=== PATIENT | male | born 1980 | race Caucasian/White ===

== ENCOUNTER 2024-05-30 14:27 | Emergency (ER) | payer BC, MEDICAID, SELFPAY ==
[2024-05-30] VITALS (9 sets, daily range): BP systolic 122–145; BP diastolic 58–93; PULSE 58–71; RESP 13–18; TEMP 36.7; O2SAT 75–98; BMI 27.3
--- NOTE | 2024-05-30 14:29 | ECG_ITS ---
[facility] Date: 2024-05[facility]30 Pat Name: Ridge Garcia Department: Room: Gender: Male Vp Platforms: : 1980 Requested By: Dionicio Emery Order Number: [id number] Yoel MD: Meng Floyd M.D. Measurements Intervals [place] Rate: 64 P: 64 VT: 161 QRS: 102 QRSD: 96 T: -9 QT: 372 QTc: 385 Interpretive Statements SINUS RHYTHM RIGHT AXIS DEVIATION [QRS AXIS > 100] ABNORMAL QRS-T ANGLE [QRS-T AXIS DIFFERENCE > 60] No previous ECG available for comparison Electronically Signed On 06-02-2024 00:01:59 PRESS TECHNICIAN by Meng Floyd M.D. [email or web address]
--- NOTE | 2024-05-30 14:30 | XRR_ITS ---
PROCEDURE INFORMATION: Exam: XR Chest Exam date and time: 05/30/2024 2:46 PM Age: 43 years old Clinical indication: Chest pressure; Patient HX: C/O left sided chest pain radiating into the arm pit that started about an hr ago while walking to his bedroom. Dizziness. PT states that it has resolved. PT reports that he gets chest pains frequently. PT also reports blood in his stool daily for the past 8 yrs. PT reports passing out this am post bm. Lower abd pain with hernia. PT is pending a gi consult. ; Additional info: Cp TECHNIQUE: Imaging protocol: Radiologic exam of the chest. Views: 1 view. COMPARISON: No relevant prior studies available. FINDINGS: Tubes, catheters and devices: None. Lungs: The lungs appear clear. Pleural spaces: No pleural effusion. No pneumothorax. Heart/Mediastinum: Mediastinum and matthew appear unremarkable. Bones/joints: No acute bony abnormality identified. XR/XR chest 1V portable [id number] IMPRESSION: No evidence for an acute cardiopulmonary process.
--- NOTE | 2024-05-30 14:49 | W.ED.CHESTPA ---
HPI - Chest Pain General: Chief Complaint: Chest Pain Stated Complaint: chest pain Time Seen by Provider: 05/30/24 14:40 Source: patient Mode of arrival: ambulatory Limitations: no limitations History of Present Illness: 43-year-old male states that he has been having chest pain he states has been going on for months. He states that he had a sharp pain in the center of his chest that is now resolved. He states that he had had a near syncopal event with the chest pain he states he also has had blood in his stool he states it has been going on for 8 years he has referral to GI [facility]. Denies any shortness of breath. Associated symptoms: Deny abdominal pain, dyspnea, fever(s), nausea or vomiting Related Data Home Medications Medication Instructions Recorded Confirmed albuterol sulfate 90 mcg/actuation 2 puff inhalation Q6H PRN 10/02/21 10/02/21 aerosol inhaler lithium carbonate 600 mg capsule 600 mg PO BID 10/02/21 10/02/21 risperidone 0.25 mg tablet 0.25 mg PO DAILY 10/02/21 10/02/21 trazodone 100 mg tablet 100 mg PO .3 at Bedtime 10/02/21 10/02/21 Allergies Allergy/AdvReac Type Severity Reaction Status Date / Time duloxetine Allergy Severe ADR-Agitate Verified 10/02/21 10:23 d NSAIDS (Non-Steroidal Allergy Unknown Verified 05/30/24 14:38 Anti-Inflamma Review of Systems Const: Denies: fever(s), chills, body aches or change in appetite ENMT: Denies: throat pain or dental pain Card: Reports: chest pain Resp: Denies: dyspnea GI: Denies: abdominal pain, nausea, vomiting or diarrhea Musc: Denies: neck pain or back pain Skin/Breast: Denies: rash Neuro: Denies: headache(s) PFSH ED PFSH: Social History Smoking and tobacco/nicotine status: current every day tobacco/nicotine user Physical Exam Const: COMMON NORMALS: no acute distress, patient oriented x3 and healthy appearing HENMT: COMMON NORMALS: normocephalic and atraumatic HEAD & SCALP: normocephalic and atraumatic Eye: COMMON NORMALS: conjunctivae normal CONJUNCTIVA: Yes conjunctivae normal Neck/C-Spine: COMMON NORMALS: full ROM and supple Chest: COMMONS NORMALS: normal inspection of the chest Resp: COMMON NORMALS: normal respiratory effort, No retractions, No use of accessory muscles and clear to auscultation bilaterally AUSCULTATION: clear to auscultation bilaterally Cardio: COMMON NORMALS: regular rate, regular rhythm and No murmurs present (Cardio) RATE: regular rate RHYTHM: regular rhythm GI: COMMON NORMALS: Normal to inspection, nondistended, normoactive bowel sounds present, Soft to palpation and non-tender PALPATION: Yes Soft to palpation Extremity: COMMON NORMALS: normal to inspection and full ROM Neuro: COMMON NORMALS: patient oriented x3, moves all extremities and no focal motor deficits Psych: COMMON NORMALS: mental status grossly normal, Normal thought process present and cooperative THOUGHT PROCESS: Normal thought process present Skin: COMMON NORMALS: no rashes or lesions noted and no wounds GENERAL SKIN EXAM: no rashes or lesions noted Course Vital Signs: Vital signs: Vital Signs Temperature 98.0 F 05/30/24 14:32 Pulse Rate 69 05/30/24 14:32 Respiratory Rate 18 05/30/24 14:32 Blood Pressure 132/78 05/30/24 14:32 Pulse Oximetry 98 05/30/24 14:32 Oxygen Delivery Me thod Room Air 05/30/24 14:32 MDM - Chest Pain Medical Decision Making Patient presents for chest pain has been going on for quite some time initial repeat troponin here normal he has no signs of ACS no signs of PE he is stable for discharge she is follow-up with PCP return if worsening. Medical Records I reviewed the patient's medical records. Lab Data I reviewed the patient's lab results. 05/30/24 14:44 05/30/24 14:44 Radiology Impressions Chest X-Ray 05/30/24 14:30 IMPRESSION: No evidence for an acute cardiopulmonary process. Laboratory Results WBC 12.61 10^3/uL (3.29-11.43) H 05/30/24 14:44 RBC 4.80 10^6/uL (3.85-5.65) 05/30/24 14:44 Hgb 15.90 g/dL (11.27-16.99) 05/30/24 14:44 Hct 46.7 % (37-53) 05/30/24 14:44 MCV 97.3 fl (82-101) 05/30/24 14:44 MCH 33.1 pg (27-33) H 05/30/24 14:44 MCHC 34.0 g/dL (30-55) 05/30/24 14:44 RDW 12.7 % (12.1-15.1) 05/30/24 14:44 Plt Count 277 10^3/cmm (157-399) 05/30/24 14:44 MPV 8.6 fL (7.4-10.4) 05/30/24 14:44 Neut % (Auto) 67.6 % 05/30/24 14:44 Lymph % (Auto) 23.3 % 05/30/24 14:44 Bell % (Auto) 7.1 % 05/30/24 14:44 Eos % (Auto) 1.0 % 05/30/24 14:44 Baso % (Auto) 0.6 % 05/30/24 14:44 Neut # (Auto) 8.51 10^3/uL (1.8-7.7) H 05/30/24 14:44 Lymph # (Auto) 2.9 10^3/uL (0.8-4.8) 05/30/24 14:44 Bell # (Auto) 0.9 10^3/uL (0.2-0.9) 05/30/24 14:44 Eos # (Auto) 0.1 10^3/uL (0.0-0.8) 05/30/24 14:44 Baso # (Auto) 0.1 10^3/uL (0.0-0.1) 05/30/24 14:44 Nucleated RBC % (auto) 0 % 05/30/24 14:44 Nucleated RBCs # 0.0 /100WBC 05/30/24 14:44 PT 12.50 SECONDS (12.1-14.9) 05/30/24 14:44 INR 0.87 (0.8-1.2) 05/30/24 14:44 Sodium 137 mmol/L (136-145) 05/30/24 14:44 Potassium 4.0 mmol/L (3.5-5.1) 05/30/24 14:44 Chloride 102 mmol/L (98-107) 05/30/24 14:44 Carbon Dioxide 24 mmol/L (22-29) 05/30/24 14:44 Anion Gap 15.0 (5-19) 05/30/24 14:44 BUN 9 mg/dL (6-20) 05/30/24 14:44 Creatinine 0.9 mg/dL (0.7-1.2) 05/30/24 14:44 GFR Calculation 93.0 mL/min (90-130) 05/30/24 14:44 Glucose 101 mg/dL (65-115) 05/30/24 14:44 Calculated Osmolality 283 mOsm/kg (285-295) L 05/30/24 14:44 Calcium 9.8 mg/dL (8.5-10.5) 05/30/24 14:44 Total Bilirubin 0.3 mg/dL (0.15-1.2) 05/30/24 14:44 AST 19 U/L (0-40) 05/30/24 14:44 ALT 16 U/L (0-41) 05/30/24 14:44 Alkaline Phosphatase 77 U/L (40-130) 05/30/24 14:44 Troponin T Baseline < 6 ng/L (0-15) 05/30/24 14:44 Troponin T 120 Minute 6.00 ng/L (0-15) 05/30/24 16:48 Delta Troponin T 0.87560 ABS# (0-10) 05/30/24 16:48 Total Protein 6.9 g/dL (6.6-8.7) 05/30/24 14:44 Albumin 4.8 g/dL (3.5-5.2) 05/30/24 14:44 Globulin 2.1 g/dL (1.3-4.6) 05/30/24 14:44 Lipase 24 U/L (13-60) 05/30/24 14:44 All radiology interpretation(s) finalized by discharge EKG Data EKG 1: I personally reviewed and interpreted this EKG as follows: EKG interpretation date: 05/30/24 EKG interpretation time: 14:29 Interpretation: nsr hr [address] elevation qrs 96 qtc 381 EKG 2: I personally reviewed and interpreted this EKG as follows: EKG interpretation date: 05/30/24 EKG interpretation time: 16:33 Interpretation: sinus brit hr [address] elevation qrs 96 qtc 404 Clincial Decision Support The following clinical decision support tools were used to aid in care of the patient HEART Score -> History: Slightly Suspicous, EKG: Normal, Age: Less than 45 yrs, Risk Factors: No Risk Factors Known, Troponin: Baseline Trop <16 ng/L. Resulting HEART Score: 0. Discharge Plan Discharge Patient Disposition: Home Clinical Impression: Chest pain Condition: Stable Prescriptions: No Action trazodone 100 mg tablet 100 mg PO .3 at Bedtime lithium carbonate 600 mg capsule 600 mg PO BID risperidone 0.25 mg tablet 0.25 mg PO DAILY albuterol sulfate 90 mcg/actuation HFA aerosol inhaler 2 puff inhalation Q6H PRN Discharge Orders: Discharge ED (Routine); Ordered 05/30/24 Ordered By: Dionicio Emery Discharge Diet: Advance as tolerated Discharge Activity: Resume usual activity Patient Instructions: Chest Pain (ED) Coding Level of Care Code ED Truck And Transport Mechanic for Gerald Layne
[2024-05-30 14:52] LABS: Basophils # 0.1 10^3/uL (0.0-0.1); Basophils % 0.6 %; Eosinophils # 0.1 10^3/uL (0.0-0.8); Hematocrit 46.7 % (37-53); Lymphocytes # 2.9 10^3/uL (0.8-4.8); Lymphocytes % 23.3 %; Mean Corpuscular Hemoglobin 33.1 pg (27-33); Mean Corpuscular Volume 97.3 fl (82-101); Mean Platelet Volume 8.6 fL (7.4-10.4); Monocytes # 0.9 10^3/uL (0.2-0.9); Monocytes % 7.1 %; Neutrophils # 8.51 10^3/uL (1.8-7.7); Neutrophils % 67.6 %; Nucleated Red Blood Cells % 0 %; Platelet Count 277 10^3/cmm (157-399); Red Cell Distribution Width 12.7 % (12.1-15.1); White Blood Count 12.61 10^3/uL (3.29-11.43)
[2024-05-30 15:04] LABS: INR 0.87 (0.8-1.2)
[2024-05-30 15:13] LABS: Alanine Aminotransferase 16 U/L (0-41); Albumin Level 4.8 g/dL (3.5-5.2); Alkaline Phosphatase 77 U/L (40-130); Aspartate Amino Transferase 19 U/L (0-40); Blood Urea Nitrogen 9 mg/dL (6-20); Calcium 9.8 mg/dL (8.5-10.5); Carbon Dioxide 24 mmol/L (22-29); Chloride 102 mmol/L (98-107); Creatinine Clr Calc Pharmacy 112.5954; Globulin 2.1 g/dL (1.3-4.6); Glucose 101 mg/dL (65-115); Lipase 24 U/L (13-60); Osmolality Calculated 283 mOsm/kg (285-295); Sodium 137 mmol/L (136-145); Total Bilirubin 0.3 mg/dL (0.15-1.2); Total Protein 6.9 g/dL (6.6-8.7)
[2024-05-30 15:14] LABS: Troponin(5th) Baseline < 6 ng/L (0-15)
--- NOTE | 2024-05-30 16:33 | ECG_ITS ---
[facility] Test Date: 2024-05-30 Pat Name: Ridge elias Department: Room: Gender: Male Story Reader: : 1980 Requested By: Dionicio Emery Order Number: [id number] Reading MD: Measurements Intervals [place] Rate: 56 P: 50 AK: 171 QRS: 102 QRSD: 96 T: -19 QT: 412 QTc: 399 Interpretive Statements SINUS BRADYCARDIA RIGHT AXIS DEVIATION [QRS AXIS > 100] MODERATE T-WAVE ABNORMALITY, CONSIDER INFERIOR ISCHEMIA [-0.1+ mV T-WAVE IN II/aVF] [id number]
[2024-05-30 17:23] LABS: Troponin 5 2HR Delta 0.00001 ABS# (0-10)
== END 2024-05-30 18:44 | disposition home or self-care (01) ==
PROVIDERS: Emergency Provider Emergency Medicine
DX: R07.9 Chest pain, unspecified (principal); Z72.0 Tobacco use
CPT/HCPCS: 36415; 71045; 80053; 83690; 84484; 85025; 85610; 93005; 99285

== ENCOUNTER 2024-06-08 15:47 | Outpatient (CLI) | payer OTHER, SELFPAY ==
--- NOTE | 2024-06-08 15:53 | US_ITS ---
WS: [id number] RENAL ULTRASOUND HISTORY: ABNORMAL CT- POSSIBLE CYST TO RIGHT KIDNEY COMPARISON: None available. TECHNIQUE: 2-D and color Doppler imaging of the kidney submitted. Right kidney: 12.4 cm x 4.8 cm x 4.2 cm. Cortex: 1.1 cm Normal echogenicity with no hydronephrosis or mass. Left kidney: 11.4 cm x 4.9 cm x 5.2 cm. Cortex: 1.1 cm Normal echogenicity with no hydronephrosis or mass. Aorta: Normal. Urinary Bladder: Normal distention. US/US renal BI* [id number] IMPRESSION: No renal cyst or solid mass identified. No prior studies for comparison which i dentified a cyst or mass. If there is possibility of a solid renal mass renal m ass CT protocol should be obtained. This would include imaging with and without IV contrast.
== END 2024-06-08 15:48 | disposition home or self-care (01) ==
LOC: RAD 15:48
PROVIDERS: Visit Provider Nurse Practitioner Family
DX: Z01.89 Encounter for other specified special examinations (principal)
CPT/HCPCS: 76770

== ENCOUNTER → 2024-06-16 09:00 | Outpatient (BNVA) | payer OTHER, SELFPAY | PROVIDERS: Visit Provider Surgery | DX: K21.9 Gastro-esophageal reflux disease without esophagitis (principal); K92.1 Melena | CPT/HCPCS: 99204 ==

== ENCOUNTER 2024-07-01 05:30 | Day surgery (SDC) | payer OTHER, SELFPAY ==
--- NOTE | 2024-07-01 05:57 | W.PM.OPSUD ---
Surgery/Procedure H&P Update DATE OF PROCEDURE: July 01, 2024 DATE H&P PERFORMED: 06/16/24 H&P UPDATE INFORMATION: I have reviewed H&P completed within last 30 days, I have examined patient prior to procedure, No changes to prior documentation and H&P is in [facility] EMR on date indicated PLANNED PROCEDURE: Operation Date: 07/01/24 07:00 Proposed Procedures p EGD 73335, 25034, G0105, K92.1, K21.9(Not Applicable) - Aubrey Son MD s Colonoscopy(Not Applicable) - Aubrey Son MD
[2024-07-01 06:00] VITALS: BP 122/79; PULSE 63; RESP 18; TEMP 36.4; O2SAT 98; BMI 27.3
[2024-07-01] MEDS: sodium chloride 0.9% 500 ML 15 ML IV (06:19)
--- NOTE | 2024-07-01 06:51 | ANES.PREANE2 ---
Pre-Anesthetic Assessment Height/Weight: Height 1.73 m Weight 81.647 kg Temp Pulse Resp BP Pulse Ox O2 Del Method 97.6 F 63 18 122/79 98 Room Air 07/01/24 06:00 07/01/24 06:00 07/01/24 06:00 07/01/24 06:00 07/01/24 06:00 07/01/24 06:00 Preop Diagnosis: Hematachezia, GERD Operation Date: 07/01/24 07:00 Proposed Procedures p EGD 54093, 23371, G0105, K92.1, K21.9(Not Applicable) - Aubrey Son MD s Colonoscopy(Not Applicable) - Aubrey Son MD Was Beta Collin taken within 24 hours: N/A Was Clonidine taken within 24 hours: N/A Last intake: Intake Last Liquid Date 06/30/24 Last Liquid Time 21:00 Last Solid Date 06/28/24 Social No alcohol and No tobacco + weed Exam alert, oriented x 3, clear to auscultation bilaterally and regular rate & rhythm Airway Submandibular: within normal limits Cervical ROM: within normal limits Mallampati: Class II Dentition: full History/ROS No significant history except as noted and No significant complaints Pulmonary None reported CV/HEM None reported None reported Hepatic None reported GI Gastroesophageal Reflux Disease Metabolic None reported Musc/skel None reported Neuropsych None reported Anesthetic Plan ASA status: 2 Anesthesia: Anesthesia Evaluation and MAC Risk of > 500 ml blood loss (7ml/kg in children): No Medications/Allergies Home Medications ?Medication ?Instructions ?Recorded ?Confirmed ?Last Taken ?Type trazodone 100 mg tablet 200 mg PO BEDTIME 10/02/21 07/01/24 06/30/24 History acetaminophen 325 mg tablet 1,300 mg PO QID PRN Pain 05/30/24 07/01/24 06/30/24 History (Tylenol) bupropion HCl 300 mg 24 hr tablet, 300 mg PO QAM 05/30/24 07/01/24 07/01/24 History extended release (Wellbutrin XL) calcium polycarbophil 625 mg tablet 1,250 mg PO DAILY 05/30/24 06/29/24 Unknown History famotidine 40 mg tablet 40 mg PO DAILY 05/30/24 07/01/24 06/30/24 History ondansetron HCl 4 mg tablet 4 mg PO Q8H PRN nausea and 06/16/24 07/01/24 06/30/24 Rx vomiting #3 tabs Allergies Allergy/AdvReac Type Severity Reaction Status Date / Time duloxetine Allergy Severe ADR-Agitate Verified 10/02/21 10:23 d NSAIDS (Non-Steroidal Allergy Unknown Verified 05/30/24 14:38 Anti-Inflamma Current Medications Generic Name Dose Route Start Last Admin Trade Name Freq PRN Reason Stop Dose Admin Sodium Chloride 500 mls @ 15 mls/hr 07/01/24 05:39 07/01/24 06:19 Sodium Chloride 0.9% IV 07/02/24 05:38 15 mls/hr .Q24H PRN Administration COLONOSCOPY FLUIDS PFSH Anesthesia Social History Smoking and tobacco/nicotine status: current every day tobacco/nicotine user Alcohol intake: never Substance/Drug Use: current Substance/Drug use frequency: daily Data Anesthesia Cardiac Studies: No Data to Display
[2024-07-01 07:38] VITALS: BP 105/72; PULSE 54; RESP 18; TEMP 36.2; O2SAT 99
[2024-07-01 07:54] VITALS: BP 129/87; PULSE 57; RESP 18; TEMP 36.2; O2SAT 99
--- NOTE | 2024-07-01 08:10 | ANE.PACU2 ---
Inpatient post-anesthesia follow up: Airway intact: Yes Vital signs: Temperature 97.1 F Pulse Rate 57 Respiratory Rate 18 Blood Pressure 129/87 Pulse Oximetry 99 Oxygen Delivery Me thod Room Air Oxygen Flow Rate Fraction of Inspir ed Oxygen Hydration adequate: Yes Nausea and vomiting: No Pain level: 1 Mental status: Baseline
== END 2024-07-01 08:10 | disposition home or self-care (01) ==
PROVIDERS: Visit Provider Surgery
PROC: 0DJ08ZZ Inspection of Upper Intestinal Tract, Via Natural or Artificial Opening Endoscopic (ICD-10-PCS; principal; 2024-07-01 07:00)
PROC: 0DJD8ZZ Inspection of Lower Intestinal Tract, Via Natural or Artificial Opening Endoscopic (ICD-10-PCS; CPT 45378; 2024-07-01 07:00)
DX: K29.50 Unspecified chronic gastritis without bleeding (principal); K22.70 Barrett's esophagus without dysplasia; R19.7 Diarrhea, unspecified; K59.00 Constipation, unspecified; K64.8 Other hemorrhoids; K21.9 Gastro-esophageal reflux disease without esophagitis; K92.1 Melena; F17.200 Nicotine dependence, unspecified, uncomplicated; Z79.899 Other long term (current) drug therapy
CPT/HCPCS: 43239; 45380; 88305; J2704; J7040

== ENCOUNTER → 2024-07-21 09:03 | Outpatient (BNVA) | payer OTHER, SELFPAY | PROVIDERS: Visit Provider Surgery | DX: K92.1 Melena (principal) | CPT/HCPCS: 99024; 99213 ==

== ENCOUNTER 2024-08-11 17:00 | Emergency (ER) | payer OTHER, BC, MEDICAID, SELFPAY ==
[2024-08-11 17:01] VITALS: BP 138/77; PULSE 64; RESP 15; TEMP 36.6; O2SAT 98; BMI 26.6
--- NOTE | 2024-08-11 17:35 | W.ED.MALEGU ---
HPI - Male Genitourinary General: Chief complaint: Urogenital-Male Stated complaint: [facility] Time Seen by Provider: 08/11/24 17:35 History of Present Illness: Associated symptoms: Deny dysuria Related Data Home Medications ?Medication ?Instructions ?Recorded ?Confirmed trazodone 100 mg tablet 200 mg PO BEDTIME 10/02/21 07/21/24 acetaminophen 325 mg tablet 1,300 mg PO QID PRN Pain 05/30/24 07/21/24 (Tylenol) bupropion HCl 300 mg 24 hr tablet, 300 mg PO QAM 05/30/24 07/21/24 extended release (Wellbutrin XL) calcium polycarbophil 625 mg tablet 1,250 mg PO DAILY 05/30/24 07/21/24 Previous Rx's ?Medication ?Instructions ?Recorded ondansetron HCl 4 mg tablet 4 mg PO Q8H PRN nausea and 06/16/24 vomiting #3 tabs sucralfate 1 gram tablet 1 g PO BID 8 weeks #112 tabs 07/01/24 pantoprazole 40 mg tablet,delayed 40 mg PO QDAY 30 days #30 tabs 07/21/24 release (Protonix) Allergies Allergy/AdvReac Type Severity Reaction Status Date / Time duloxetine Allergy Severe ADR-Agitate Verified 07/21/24 09:02 d NSAIDS (Non-Steroidal Allergy Unknown Verified 07/21/24 09:02 Anti-Inflamma Review of Systems Const: Denies: fever(s) or chills Card: Denies: chest pain Resp: Denies: dyspnea GI: Denies: abdominal pain : Denies: dysuria, urinary frequency or urinary urgency Musc: Denies: neck pain or back pain Skin/Breast: Denies: rash PFSH ED PFSH: Social History Smoking and tobacco/nicotine status: current every day tobacco/nicotine user Alcohol intake: never Substance/Drug Use: current Substance/Drug use frequency: daily Physical Exam Const: COMMON NORMALS: no acute distress GENERAL APPEARANCE: cooperative and comfortable ORIENTATION/CONSCIOUSNESS: Yes awake, Yes oriented to person, Yes oriented to place and Yes oriented to time HENMT: COMMON NORMALS: normocephalic, atraumatic and hearing grossly normal bilaterally HEAD & SCALP: normocephalic and atraumatic Resp: COMMON NORMALS: normal respiratory effort, No retractions, No use of accessory muscles and clear to auscultation bilaterally AUSCULTATION: clear to auscultation bilaterally Cardio: COMMON NORMALS: regular rate, regular rhythm and No murmurs present (Cardio) RATE: regular rate RHYTHM: regular rhythm GI: COMMON NORMALS: Soft to palpation and No hepatosplenomegaly present AUSCULTATION: Yes normoactive bowel sounds PALPATION: Yes Soft to palpation, No Tenderness to palpation present (GI), No Guarding due to palpation present (GI) and Yes No hepatosplenomegaly present Extremity: COMMON NORMALS: normal to inspection, capillary refill normal, no clubbing, cyanosis or edema, no calf tenderness and no pedal edema Neuro: SENSORIUM/ORIENTATION: Yes oriented to person, Yes oriented to place and Yes oriented to time Skin: COMMON NORMALS: no rashes or lesions noted GENERAL SKIN EXAM: no rashes or lesions noted Course Vital Signs: Vital signs: Vital Signs Temperature 97.9 F 08/11/24 17:01 Pulse Rate 64 08/11/24 17:01 Respiratory Rate 15 08/11/24 17:01 Blood Pressure 138/77 08/11/24 17:01 Pulse Oximetry 98 08/11/24 17:01 Oxygen Delivery Me thod Room Air 08/11/24 17:01 Discharge Plan Discharge Condition: Stable Prescriptions: No Action ondansetron HCl 4 mg tablet 4 mg PO Q8H PRN (Reason: nausea and vomiting) Qty: 3 0RF pantoprazole [Protonix] 40 mg tablet,delayed release (DR/EC) 40 mg PO QDAY 30 Days Qty: 30 5RF trazodone 100 mg tablet 200 mg PO BEDTIME acetaminophen [Tylenol] 325 mg Tablet 1,300 mg PO QID PRN (Reason: Pain) bupropion HCl [Wellbutrin XL] 300 mg Tablet Extended Release 24 Hr 300 mg PO QAM calcium polycarbophil 625 mg Tablet 1,250 mg PO DAILY sucralfate 1 gram tablet 1 g PO BID 56 Days Qty: 112 0RF Print Language: Barbadian Coding Level of Care Code ED Hydraulic Punch Press Operator for Gerald Layne
--- NOTE | 2024-08-11 18:06 | W.ED.MALEGU ---
HPI - Male Genitourinary General: Chief complaint: Urogenital-Male Stated complaint: [facility] Time Seen by Provider: 08/11/24 17:35 History of Present Illness: Patient presents to the ER with complaints of cramping in his testicles bilaterally. He said it was worse today. Rated 8 out of 10 with today currently denies any pain at all he did go home and take some ibuprofen and Tylenol. [facility] with this pain is worried about testicular torsion/hernia and they sent him appear to be evaluated. Patient is totally pain-free when he gets here. Patient does have a known ventral hernia and hiatal hernia. But he says these pain is totally different than that. 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 Related Data Home Medications ?Medication ?Instructions ?Recorded ?Confirmed trazodone 100 mg tablet 200 mg PO BEDTIME 10/02/21 07/21/24 acetaminophen 325 mg tablet 1,300 mg PO QID PRN Pain 05/30/24 07/21/24 (Tylenol) bupropion HCl 300 mg 24 hr tablet, 300 mg PO QAM 05/30/24 07/21/24 extended release (Wellbutrin XL) calcium polycarbophil 625 mg tablet 1,250 mg PO DAILY 05/30/24 07/21/24 Previous Rx's ?Medication ?Instructions ?Recorded ondansetron HCl 4 mg tablet 4 mg PO Q8H PRN nausea and 06/16/24 vomiting #3 tabs sucralfate 1 gram tablet 1 g PO BID 8 weeks #112 tabs 07/01/24 pantoprazole 40 mg tablet,delayed 40 mg PO QDAY 30 days #30 tabs 07/21/24 release (Protonix) Allergies Allergy/AdvReac Type Severity Reaction Status Date / Time duloxetine Allergy Severe ADR-Agitate Verified 07/21/24 09:02 d NSAIDS (Non-Steroidal Allergy Unknown Verified 07/21/24 09:02 Anti-Inflamma Review of Systems General: Reports: 10 or more systems reviewed and unremarkable except in HPI and below PFSH ED PFSH: Social History Smoking and tobacco/nicotine status: current every day tobacco/nicotine user Alcohol intake: never Substance/Drug Use: current Substance/Drug use frequency: daily Physical Exam Const: COMMON NORMALS: no acute distress, average body habitus, patient oriented x3, no limitations, healthy appearing, alert and well nourished HENMT: COMMON NORMALS: normocephalic, atraumatic, hearing grossly normal bilaterally, external ears normal, Normal external nose present, moist oral mucous membranes and oropharynx normal HEAD & SCALP: normocephalic and atraumatic NOSE: Normal external nose present EXTERNAL EAR: Yes external ears normal Neck/C-Spine: COMMON NORMALS: no JVD Chest: COMMONS NORMALS: normal inspection of the chest and normal palpation of entire chest wall Resp: COMMON NORMALS: normal respiratory effort, No retractions, No use of accessory muscles and clear to auscultation bilaterally AUSCULTATION: clear to auscultation bilaterally Cardio: COMMON NORMALS: no JVD, regular rate, regular rhythm, S1 normal heart sound present, S2 normal heart sound present, No gallops present (Cardio), No clicks present (Cardio), No murmurs present (Cardio) and No rub (Cardio) RATE: regular rate RHYTHM: regular rhythm HEART SOUNDS: S1 normal heart sound present and S2 normal heart sound present GI: COMMON NORMALS: Normal to inspection, nondistended, normoactive bowel sounds present, Soft to palpation, non-tender, No hepatosplenomegaly present and no masses PALPATION: Yes Soft to palpation and Yes No hepatosplenomegaly present Neuro: COMMON NORMALS: patient oriented x3 SENSORIUM/ORIENTATION: Yes alert Course Vital Signs: Vital signs: Vital Signs Temperature 97.9 F 08/11/24 17:01 Pulse Rate 64 08/11/24 17:01 Respiratory Rate 15 08/11/24 17:01 Blood Pressure 138/77 08/11/24 17:01 Pulse Oximetry 98 08/11/24 17:01 Oxygen Delivery Me thod Room Air 08/11/24 17:01 MDM - Male Medical Decision Making Patient presents to the ER with no testicular pain swelling noted. Patient declined having any lab work or ultrasound done. He said he if this happens again he will come back otherwise he will just follow-up with his [facility]. Will be discharged. Medical Records I reviewed the patient's medical records. Lab Data I reviewed the patient's lab results. No radiology studies performed this visit Discharge Plan Discharge Patient Disposition: Home Clinical Impression: Pain in both testicles Condition: Stable Prescriptions: No Action ondansetron HCl 4 mg tablet 4 mg PO Q8H PRN (Reason: nausea and vomiting) Qty: 3 0RF pantoprazole [Protonix] 40 mg tablet,delayed release (DR/EC) 40 mg PO QDAY 30 Days Qty: 30 5RF trazodone 100 mg tablet 200 mg PO BEDTIME acetaminophen [Tylenol] 325 mg Tablet 1,300 mg PO QID PRN (Reason: Pain) bupropion HCl [Wellbutrin XL] 300 mg Tablet Extended Release 24 Hr 300 mg PO QAM calcium polycarbophil 625 mg Tablet 1,250 mg PO DAILY sucralfate 1 gram tablet 1 g PO BID 56 Days Qty: 112 0RF Discharge Orders: Discharge ED (Routine); Ordered 08/11/24 Ordered By: Ridge Gunderson Patient Instructions: Testicle Pain (ED) Activity Restrictions/Additional Instructions: If your pain returns or continues please return to the ER. Otherwise follow-up with your [facility] within next 7 to 10 days for further evaluation treatment as needed. Print Language: Belgian Coding Level of Care Code ED Foreign Service Teacher for Gerald Layne
[2024-08-11 18:21] VITALS: BP 137/68; PULSE 62; PULSE 68; O2SAT 99
== END 2024-08-11 18:22 | disposition home or self-care (01) ==
PROVIDERS: Emergency Provider Emergency Medicine
DX: N50.812 Left testicular pain (principal); N50.811 Right testicular pain; Z72.0 Tobacco use
CPT/HCPCS: 99281

== ENCOUNTER → 2024-09-30 11:22 | Outpatient (BNVA) | payer OTHER, SELFPAY | PROVIDERS: Visit Provider Surgery | DX: K92.0 Hematemesis (principal) | CPT/HCPCS: 99214 ==

== ENCOUNTER 2024-11-04 08:32 | Day surgery (SDC) | payer OTHER, SELFPAY ==
--- NOTE | 2024-11-04 08:42 | W.PM.OPSFHP ---
Same Day Surgery H&P Indication for Procedure/HPI DATE OF PROCEDURE: November 04, 2024 CHIEF COMPLAINT/INDICATIONFOR SURGICAL PROCEDURE: hematemesis PREOP DIAGNOSIS: hematemesis PLANNED PROCEDURE: Operation Date: 11/04/24 10:10 Proposed Procedures p EGD 88069 K92.0(Not Applicable) - Aubrey Son MD Medications/Allergies* Home Medications ?Medication ?Instructions ?Recorded ?Confirmed ?Type trazodone 100 mg tablet 200 mg PO BEDTIME 10/02/21 11/02/24 History acetaminophen 325 mg tablet 1,300 mg PO QID PRN Pain 05/30/24 11/02/24 History (Tylenol) calcium polycarbophil 625 mg tablet 1,250 mg PO DAILY 05/30/24 11/02/24 History albuterol 90 mcg/actuation aerosol 90 mcg inhalation PRN PRN 11/02/24 11/02/24 History inhaler Shortness Of Breath budesonide-formoterol HFA 80 2 puff inhalation BID 11/02/24 11/02/24 History mcg-4.5 mcg/actuation aerosol inhaler (Symbicort) cyclobenzaprine 10 mg tablet 10 mg PO BID 11/02/24 11/02/24 History fluticasone propionate 50 2 spray intranasal DAILY 11/02/24 11/02/24 History mcg/actuation nasal spray,suspension quetiapine 200 mg tablet 200 mg PO BEDTIME 11/02/24 11/02/24 History Allergies/Adverse Reactions Allergy/AdvReac Type Severity Reaction Status Date / Time duloxetine Allergy Severe ADR-Agitate Verified 11/02/24 10:34 d NSAIDS (Non-Steroidal Allergy Unknown Verified 11/02/24 10:34 Anti-Inflamma Pertinent History/Comorbid Conditions* Social History Smoking and tobacco/nicotine status: current every day tobacco/nicotine user Alcohol intake: never Substance/Drug Use: current Substance/Drug use frequency: daily Pertinent Exam Findings alert, oriented x 3, clear to auscultation bilaterally and regular rate & rhythm Recommendations Surgery/Procedure today Coding Level of Care Code Acute Code for Chg Fwd
[2024-11-04 09:00] VITALS: BP 122/70; PULSE 69; RESP 18; TEMP 36.2; O2SAT 100
[2024-11-04] MEDS: sodium chloride 0.9% 1,000 ML 15 ML IV (09:01)
--- NOTE | 2024-11-04 09:09 | ANES.PREANE2 ---
Pre-Anesthetic Assessment Height/Weight: Height 1.73 m Weight 83.007 kg Temp Pulse Resp BP Pulse Ox O2 Del Method 97.2 F L 69 18 122/70 100 Room Air 11/04/24 09:00 11/04/24 09:00 11/04/24 09:00 11/04/24 09:00 11/04/24 09:00 11/04/24 09:00 Preop Diagnosis: hematemesis Operation Date: 11/04/24 10:10 Proposed Procedures p EGD 48578 K92.0(Not Applicable) - Aubrey Son MD Familial anesthetic complications: none Was Beta Collin taken within 24 hours: N/A Was Clonidine taken within 24 hours: N/A Last intake: Intake Last Liquid Date 11/03/24 Last Liquid Time 20:00 Last Solid Date 11/03/24 Last Solid Time 20:00 Social Tobacco daily cannabis use, last smoked 11/03 Exam alert, oriented x 3 and regular rate & rhythm Airway Mallampati: Class II Dentition: full History/ROS No significant history except as noted Pulmonary None reported CV/HEM None reported None reported Hepatic None reported GI Gastroesophageal Reflux Disease pt states he has been vomiting blood, currently feeling nauseous Metabolic None reported Musc/skel recent right shoulder injury and pain Neuropsych None reported Anesthetic Plan ASA status: 2 Anesthesia: Anesthesia Evaluation and General Other: daily cannabis use discussed, pt denies any other substance use. Risk of > 500 ml blood loss (7ml/kg in children): No Medications/Allergies Home Medications ?Medication ?Instructions ?Recorded ?Confirmed ?Last Taken ?Type trazodone 100 mg tablet 200 mg PO BEDTIME 10/02/21 11/02/24 11/03/24 History acetaminophen 325 mg tablet 1,300 mg PO QID PRN Pain 05/30/24 11/02/24 11/03/24 History (Tylenol) calcium polycarbophil 625 mg tablet 1,250 mg PO DAILY 05/30/24 11/02/24 11/03/24 History ondansetron HCl 4 mg tablet 4 mg PO Q8H PRN nausea and 06/16/24 11/02/24 11/03/24 Rx vomiting #3 tabs pantoprazole 40 mg tablet,delayed 40 mg PO QDAY 30 days #30 tabs 07/21/24 11/02/24 11/03/24 Rx release (Protonix) sucralfate 100 mg/mL oral 1 g (10 mL) PO BID 1 month #600 mL 09/30/24 11/02/24 11/03/24 Rx suspension albuterol 90 mcg/actuation aerosol 90 mcg inhalation PRN PRN 11/02/24 11/02/24 11/03/24 History inhaler Shortness Of Breath budesonide-formoterol HFA 80 2 puff inhalation BID 11/02/24 11/02/24 11/03/24 History mcg-4.5 mcg/actuation aerosol inhaler (Symbicort) cyclobenzaprine 10 mg tablet 10 mg PO BID 11/02/24 11/02/24 11/04/24 History fluticasone propionate 50 2 spray intranasal DAILY 11/02/24 11/02/24 11/03/24 History mcg/actuation nasal spray,suspension quetiapine 200 mg tablet 200 mg PO BEDTIME 11/02/24 11/02/24 11/03/24 History Allergies Allergy/AdvReac Type Severity Reaction Status Date / Time duloxetine Allergy Severe ADR-Agitate Verified 11/02/24 10:34 d NSAIDS (Non-Steroidal Allergy Unknown Verified 11/02/24 10:34 Anti-Inflamma Current Medications Generic Name Dose Route Start Last Admin Trade Name Freq PRN Reason Stop Dose Admin Sodium Chloride 1,000 mls @ 15 mls/hr 11/04/24 08:36 11/04/24 09:01 Sodium Chloride 0.9% IV 11/05/24 08:35 15 mls/hr .Q24H PRN Administration COLONOSCOPY FLUIDS PFSH Anesthesia Social History Smoking and tobacco/nicotine status: current every day tobacco/nicotine user Alcohol intake: never Substance/Drug Use: current Substance/Drug use frequency: daily
[2024-11-04 09:58] VITALS: BP 101/68; PULSE 82; RESP 18; TEMP 36.2; O2SAT 99
[2024-11-04 10:13] VITALS: BP 116/60; PULSE 74; RESP 18; O2SAT 94
--- NOTE | 2024-11-04 10:22 | ANE.PACU2 ---
Inpatient post-anesthesia follow up: Airway intact: Yes Vital signs: Temperature 97.2 F Pulse Rate 74 Respiratory Rate 18 Blood Pressure 116/60 Pulse Oximetry 94 Oxygen Delivery Me thod Room Air Oxygen Flow Rate Fraction of Inspir ed Oxygen Hydration adequate: Yes Nausea and vomiting: No Pain level: 1 Mental status: Baseline
== END 2024-11-04 10:22 | disposition home or self-care (01) ==
PROVIDERS: PCP Nurse Practitioner Family; Visit Provider Surgery
PROC: 0DJ08ZZ Inspection of Upper Intestinal Tract, Via Natural or Artificial Opening Endoscopic (ICD-10-PCS; principal; 2024-11-04 10:10)
DX: K22.70 Barrett's esophagus without dysplasia (principal); F17.200 Nicotine dependence, unspecified, uncomplicated; K29.51 Unspecified chronic gastritis with bleeding; K21.00 Gastro-esophageal reflux disease with esophagitis, without bleeding; Z88.8 Allergy status to other drugs, medicaments and biological substances; Z79.899 Other long term (current) drug therapy
CPT/HCPCS: 43239; 88305; 88342; J2704; J3490; J7030

== ENCOUNTER → 2024-11-16 10:06 | Outpatient (BNVA) | payer OTHER, SELFPAY | PROVIDERS: PCP Nurse Practitioner Family; Visit Provider Surgery | DX: Z09 Encounter for follow-up examination after completed treatment for conditions other than malignant neoplasm (principal) | CPT/HCPCS: 99213 ==